=== PATIENT | male | born 1970 | race Caucasian/White ===

== ENCOUNTER 2016-11-19 18:09 | Emergency (ER) | payer MEDICAID ==
[~2016-11-19] VITALS: Ht 177.8 cm; Wt 60.2 kg
[2016-11-19 18:11] VITALS: BP 130/81
[2016-11-19] MEDS ORDERED: LIDOCAINE 1%, 20ML ONE (18:50)
[2016-11-19] MEDS ORDERED: LIDOCAINE 1%-EPI 1:100K, 20ML SQ ONE (19:00)
[2016-11-19 19:12] LABS: ASPARTATE AMINO TRANSFERASE 31 U/L (15-37); BLOOD UREA NITROGEN 11 mg/dL (7-18)
== END 2016-11-19 19:45 | disposition home or self-care (01) ==
LOC: ED 19:39
DX: L02.31 Cutaneous abscess of buttock (principal); B19.20 Unspecified viral hepatitis C without hepatic coma; F15.10 Other stimulant abuse, uncomplicated; Z88.0 Allergy status to penicillin; Z88.1 Allergy status to other antibiotic agents; Z88.6 Allergy status to analgesic agent
CPT/HCPCS: 10060; 36415; 80053; 85025

== ENCOUNTER 2017-01-08 03:14 | Emergency (ER) | payer MEDICAID ==
[~2017-01-08] VITALS: Ht 172.7 cm; Wt 70.0 kg
[2017-01-08 03:15] VITALS: BP 130/87
[2017-01-08] MEDS ORDERED: IBUPROFEN 200 MG TABLET PO ONE (03:30)
[2017-01-08] MEDS ORDERED: MAALOX/HYOSCYAMINE/LIDOCAINE 45 ML BOTTLE PO ONE (03:30)
[2017-01-08] MEDS ORDERED: IBUPROFEN 200 MG TABLET ONE (03:38)
[2017-01-08] MEDS ORDERED: MAALOX/HYOSCYAMINE/LIDOCAINE 45 ML BOTTLE ONE (03:38)
[2017-01-08] MEDS ORDERED: RANI150T8 PO (03:56)
[2017-01-08] MEDS ORDERED: CLON0.1T PO (03:56)
[2017-01-08] MEDS ORDERED: BUSP10TA PO (03:56)
[2017-01-08] MEDS ORDERED: MIRT15TA4 PO (03:56)
== END 2017-01-08 03:58 | disposition home or self-care (01) ==
LOC: ED 03:41
DX: Z76.0 Encounter for issue of repeat prescription (principal); F20.9 Schizophrenia, unspecified; F41.9 Anxiety disorder, unspecified; B19.20 Unspecified viral hepatitis C without hepatic coma; K21.9 Gastro-esophageal reflux disease without esophagitis
CPT/HCPCS: 99283